=== PATIENT | male | born 1975 | race Caucasian/White ===

== ENCOUNTER 2018-04-25 09:19 | Emergency (ER) | payer OTHER ==
[~2018-04-25] VITALS: Ht 170.2 cm; Wt 95.3 kg
[2018-04-25 09:30] VITALS: Ht 170.2 cm; Wt 95.3 kg
[2018-04-25 10:26] LABS: CALCIUM 8.6 mg/dL (8.5-10.1); CARBON DIOXIDE 27.1 mmol/L (21-32); CHLORIDE SERUM 102 mmol/L (98-107); GFR1 > 60 mL/min; GLUCOSE SERUM 101 mg/dL (74-106); POTASSIUM SERUM 3.5 mmol/L (3.5-5.1); SODIUM SERUM 137 mmol/L (136-145)
[2018-04-25 10:29] LABS: BASOPHIL % 1.4 % (0-2); PLATELET COUNT 292 x10^3mcL (130-400); RED CELL DISTRIBUTION WIDTH 14.2 % (11.5-14.5)
[2018-04-25 10:31] LABS: ALBUMIN 3.8 g/dL (3.4-5.0); ALKALINE PHOSPHATASE 66 U/L (46-116); ALT/SGPT 20 U/L (16-63); AST/SGOT 14 U/L (15-37); BILIRUBIN TOTAL 0.4 mg/dL (0.20-1.00); TOTAL PROTEIN, SERUM 7.6 g/dL (6.4-8.2)
[2018-04-25 12:38] VITALS: BP 147/93
== END 2018-04-25 12:38 | disposition left against medical advice (07) ==
LOC: ED 09:19
PROVIDERS: Emergency Medicine
DX: B34.9 Viral infection, unspecified (principal); R51 Headache
CPT/HCPCS: 36415; 87804; J0780; J1885; J2270

== ENCOUNTER 2018-06-24 16:44 | Emergency (ER) | payer OTHER ==
[~2018-06-24] VITALS: Ht 170.2 cm; Wt 95.3 kg
[2018-06-24 16:52] VITALS: Ht 170.2 cm; Wt 95.3 kg
[2018-06-24 19:05] VITALS: BP 146/87
== END 2018-06-24 19:05 | disposition home or self-care (01) ==
LOC: ED 16:44
DX: S86.911A Strain of unspecified muscle(s) and tendon(s) at lower leg level, right leg, initial encounter (principal); M19.90 Unspecified osteoarthritis, unspecified site; W22.8XXA Striking against or struck by other objects, initial encounter; Y93.89 Activity, other specified; Y92.89 Other specified places as the place of occurrence of the external cause; Y99.8 Other external cause status